=== PATIENT | male | born 1980 | race Caucasian/White ===

== ENCOUNTER 2019-08-08 20:13 | Emergency (ER) | payer BC ==
[2019-08-08 20:28] VITALS: BP 129/83; PULSE 98
[2019-08-08] MEDS ORDERED: Insulin Lispro 100 Unit/ML 3 ML KwikPen SUBCUT ONE (20:28)
--- NOTE | 2019-08-08 20:33 | EDM.PDOC ---
ED HPI GENERAL MEDICAL PROBLEM - General Chief Complaint: Medication Administration Stated Complaint: Diabetes Time Seen by Provider: 08/08/19 20:26 Source of Information: Reports: Patient History Limitations: Reports: No Limitations - History of Present Illness INITIAL COMMENTS - FREE TEXT/NARRATIVE: Patient presents tonight with concerns of being out of his rapid acting insulin. Typically uses Lantus one time per day, 15 units with meals. Had his last dose today at 1330 and thought had another pen at home but is out. Is worried about getting sick if his sugars start running too high. He states when that happens he "gets sicker than a dog with nausea and vomiting" and wants to avoid that. He has no other concerns today. Did eat supper prior to coming here so feels he needs to give himself his usual injection now. Onset: Today Associated Symptoms: Reports: No Other Symptoms - Related Data Allergies Allergy/AdvReac Type Severity Reaction Status Date / Time No Known Allergies Allergy Verified 08/08/19 20:24 Home Meds: Home Meds DULoxetine [Cymbalta] 60 mg PO DAILY 09/13/15 [History] Gabapentin [Neurontin] 1 tab PO BID 09/13/15 [History] Insulin Aspart [NovoLOG] 38 units SQ BEDTIME 09/13/15 [History] Insulin Glarg,Human.Rec.Analog [LantUS Solostar] 10 - 15 units SQ BID 09/13/15 [ History] Past Medical History Neurological History: Reports: Neuropathy, Diabetic Endocrine/Metabolic History: Reports: Diabetes, Type I - Past Surgical History Musculoskeletal Surgical History: Reports: Other (See Below) ED ROS GENERAL - Review of Systems Review Of Systems: Comprehensive ROS is negative, except as noted in HPI. ED EXAM, GENERAL - Physical Exam Exam: See Below Exam Limited By: No Limitations General Appearance: Alert, WD/WN, No Apparent Distress, Other (no other physical exam done as patient has no complaints, just needing a med refill) Course - Vital Signs Last Recorded V/S: Last Vital Signs Temp 97.1 F 08/08/19 20:26 Pulse 98 08/08/19 20:26 Resp 18 08/08/19 20:26 BP 129/83 08/08/19 20:26 Pulse Ox 98 08/08/19 20:26 - Re-Assessments/Exams Free Text/Narrative Re-Assessment/Exam: 08/08/19 20:32 Patient typically uses novolog at home, we stock Humalog here. Relates has used Humalog before and tolerates it well. Departure - Departure Time of Disposition: 20:33 Disposition: Home, Self-Care 01 Condition: Good Clinical Impression: Encounter for medication refill - Discharge Information *PRESCRIPTION DRUG MONITORING PROGRAM REVIEWED*: No *COPY OF PRESCRIPTION DRUG MONITORING REPORT IN PATIENT MARGRET: No Referrals: Haily Thomas, [employer] [Primary Care Provider] - Additional Instructions: 1. Humalog per usual dose with meals 2. Continue Lantus as directed 3. Follow up for concerns Sepsis Event Note - Evaluation Sepsis Screening Result: No Definite Risk - Focused Exam Vital Signs: Vital Signs Temp Pulse Resp BP Pulse Ox 08/08/19 20:26 97.1 F 98 18 129/83 98 Date Exam was Performed: 08/08/19 Time Exam was Performed: 20:28
== END 2019-08-08 20:44 | disposition home or self-care (01) ==
LOC: VM.ED 20:13
DX: Z76.0 Encounter for issue of repeat prescription (principal); E11.10 Type 2 diabetes mellitus with ketoacidosis without coma; Z79.4 Long term (current) use of insulin
CPT/HCPCS: 99284; J1815-GY

== ENCOUNTER 2022-04-09 17:54 | Emergency (ER) | payer BC ==
[2022-04-09 18:10] VITALS: BP 100/58; PULSE 130
[2022-04-09 18:37] LABS: CHLORIDE,CL 89 mmol/L (98-107); SODIUM,NA 131 mmol/L (136-145)
[2022-04-09 18:38] LABS: ANION GAP 16.6 mmol/L (5-15); ESTIMATED GFR 28 mL/min (>=60)
[2022-04-09] MEDS ORDERED: Lactated Ringers 1,000 ML IV SCH ×2 (19:15→20:00)
== END 2022-04-09 20:46 | disposition home or self-care (01) ==
LOC: VM.ED 17:54
DX: E86.0 Dehydration (principal); E13.10 Other specified diabetes mellitus with ketoacidosis without coma; R82.4 Acetonuria; E13.40 Other specified diabetes mellitus with diabetic neuropathy, unspecified; Z79.84 Long term (current) use of oral hypoglycemic drugs; Z79.899 Other long term (current) drug therapy
CPT/HCPCS: 36415; 80048; 81003; 82010; 85025; 93005; 93010; 96360; 99284; 99284-25; J7120

== ENCOUNTER 2024-08-18 07:51 | Observation (INO) | payer BC ==
[2024-08-18] MEDS: Lactated Ringers 1,000 ML IV ONE (08:29)
[2024-08-18 08:36] LABS: BASOPHILS PERCENT AUTO 0.3 % (0.2-1.2); EOSINOPHILS PERCENT AUTO 0.1 % (0.0-4.0); HEMATOCRIT 38.5 % (40.0-52.0); HEMOGLOBIN 13.7 g/dL (14.0-18.0); IMMATURE GRAN ABSOLUTE AUTO 0.06 x10^3/uL (0.00-0.07); LYMPHOCYTES ABSOLUTE AUTO 1.1 x10^3/uL (1.0-4.8); LYMPHOCYTES PERCENT AUTO 6.9 % (25.0-50.0); MEAN CORPUSCULAR HEMOGLOBIN 31.4 pg (26.0-32.0); MEAN CORPUSCULAR HGB CONC 35.6 g/dL (32.0-36.0); MEAN CORPUSCULAR VOLUME 88.1 fL (78.0-93.0); MONOCYTES ABSOLUTE AUTO 0.6 x10^3/uL (0.0-0.8); MONOCYTES PERCENT AUTO 3.6 % (2.0-11.0); NEUTROPHILS ABSOLUTE AUTO 14.2 x10^3/uL (1.8-7.7); NEUTROPHILS PERCENT AUTO 88.7 % (50.0-80.0); PLATELET COUNT,PLT 346 x10^3/uL (130-400); RED BLOOD CELL COUNT 4.37 x10^6/uL (4.5-6.0)
[2024-08-18 08:46] LABS: APPEARANCE,URINE CLEAR (CLEAR); BILIRUBIN,URINE NEGATIVE (NEGATIVE); COLOR,URINE YELLOW (YELLOW); GLUCOSE,URINE 250 mg/dL (NEGATIVE); KETONES,URINE NEGATIVE (NEGATIVE); LEUKOCYTE ESTERASE,URINE NEGATIVE (NEGATIVE); NITRITE,URINE NEGATIVE (NEGATIVE); OCCULT BLOOD,URINE TRACE-INTACT (NEGATIVE); PH,URINE 7.5 (5.0-8.0); PROTEIN,URINE 30 mg/dL (NEGATIVE); UROBILINOGEN,URINE 0.2 EU/dL (0.2)
[2024-08-18 08:48] LABS: BACTERIA,URINE RARE /HPF (NOT SEEN); MUCUS,URINE OCCASIONAL /LPF (NOT SEEN); RBC,URINE 0-5 /HPF (NOT SEEN); SQUAMOUS EPITHELIAL CELLS,UR NOT SEEN /HPF (NOT SEEN); WBC,URINE 0-5 /HPF (NOT SEEN)
[2024-08-18 09:13] LABS: A/G RATIO 1.05; ALANINE AMINOTRANSFERASE,ALT 21 U/L (16-63); ALKALINE PHOSPHATASE 111 U/L (46-116); ASPARTATE AMNIOTRANSFERASE,AST 22 U/L (15-37); BILIRUBIN TOTAL 0.6 mg/dL (0.2-1.0); BLOOD UREA NITROGEN,BUN 8 mg/dL (7-18); CALCIUM 9.3 mg/dL (8.5-10.1); CARBON DIOXIDE,CO2 30 mmol/L (21-32); CHLORIDE,CL 89 mmol/L (98-107); CREATININE 0.9 mg/dL (0.70-1.30); GLUCOSE RANDOM 272 mg/dL (70-99); MAGNESIUM 1.9 mg/dL (1.8-2.4); POTASSIUM,K 3.8 mmol/L (3.5-5.1); PROTEIN TOTAL,TP 7.8 g/dL (6.4-8.2); TSH ULTRASENSITIVE 2.825 uIU/mL (0.358-3.74)
[2024-08-18 09:16] LABS: ANION GAP 13.8 mmol/L (5-15); C-REACTIVE PROTEIN < 0.50 mg/dL (<=0.50); ESTIMATED GFR 109 mL/min (>=60); ETHANOL BLOOD MEDICAL < 3 mg/dL (0-3); SODIUM,NA 129 mmol/L (136-145)
[2024-08-18] MEDS: DULoxetine 60 MG Cap PO SCH (12:05)
[2024-08-18] MEDS: Insulin Lispro 100 Units/ML 3 ML Vial SUBCUT SCH (12:05)
[2024-08-18] MEDS: Sodium Chloride 0.9% 1,000 ML IV SCH (12:06)
[2024-08-18] MEDS: Gabapentin 400 MG Cap PO SCH (12:06)
[2024-08-18] MEDS: Albuterol/Ipratropium 3.0-0.5 MG/3 ML Neb Soln NEB ONE (12:55)
[2024-08-18] MEDS: Insulin Glarg,Human.Rec.Analog 100 Unit/ML 10 ML Vial SUBCUT SCH (20:53)
[2024-08-19 06:46] VITALS: BP 159/91; PULSE 98
[2024-08-19 07:08] LABS: BASOPHILS ABSOLUTE AUTO 0.1 x10^3/uL (0.0-0.2); BASOPHILS PERCENT AUTO 0.5 % (0.2-1.2); EOSINOPHILS ABSOLUTE AUTO 0.1 x10^3/uL (0.0-0.5); HEMATOCRIT 35.5 % (40.0-52.0); HEMOGLOBIN 12.7 g/dL (14.0-18.0); IMMATURE GRAN ABSOLUTE AUTO 0.02 x10^3/uL (0.00-0.07); LYMPHOCYTES ABSOLUTE AUTO 2.6 x10^3/uL (1.0-4.8); LYMPHOCYTES PERCENT AUTO 25.2 % (25.0-50.0); MEAN CORPUSCULAR HEMOGLOBIN 31.4 pg (26.0-32.0); MEAN CORPUSCULAR HGB CONC 35.8 g/dL (32.0-36.0); MEAN CORPUSCULAR VOLUME 87.9 fL (78.0-93.0); MONOCYTES ABSOLUTE AUTO 0.7 x10^3/uL (0.0-0.8); MONOCYTES PERCENT AUTO 6.5 % (2.0-11.0); NEUTROPHILS PERCENT AUTO 66.6 % (50.0-80.0); PLATELET COUNT,PLT 342 x10^3/uL (130-400); RED BLOOD CELL COUNT 4.04 x10^6/uL (4.5-6.0); WHITE BLOOD CELL COUNT,WBC 10.5 x10^3/uL (4.0-10.0)
[2024-08-19 07:22] LABS: CALCIUM 8.6 mg/dL (8.5-10.1); CREATININE 0.6 mg/dL (0.70-1.30); EST CRCL DRUG DOSING (CG) 184.57 mL/min; POTASSIUM,K 3.3 mmol/L (3.5-5.1)
[2024-08-19 07:23] LABS: ANION GAP 14.3 mmol/L (5-15)
== END 2024-08-19 08:00 | disposition home or self-care (01) ==
LOC: VM.ED 07:51 → VM.MS 10:39
PROVIDERS: ADMIT Physician Assistant; ATTEND Physician Assistant
DX: E87.1 Hypo-osmolality and hyponatremia (principal); E10.65 Type 1 diabetes mellitus with hyperglycemia; F17.210 Nicotine dependence, cigarettes, uncomplicated; Z79.899 Other long term (current) drug therapy
CPT/HCPCS: 36415; 70450; 71045; 80048; 80053; 80307; 81001; 82010; 82947; 83605; 83735; 84443; 84484; 85025; 86140; 87040; 87428; 87651; 94640; 96360; 96361; 99285; A9270; G0378; J1815; J7030; J7120; 93010; 99284; J7620-GY